=== PATIENT | male | born 1970 | race African-American/Black ===

== ENCOUNTER 2019-02-07 09:52 | Emergency (ER) | payer OTHER ==
[~2019-02-07] VITALS: Ht 177.8 cm; Wt 105.2 kg
[~2019-02-07 09:52] MED LIST: ANTIVERT/2525 MG PO; APAP/HYDROCODON1 T13 PO; APAP/HYDROCODON1 T15 PO; FLO4 PO; HYDRALAZINE HCL10 MG PO; LISINOPRIL/HCTZ PO; METOPROLOL TART25 M1 PO; MEV20 PO; MOTRIN800 MG PO; PRO10 PO; TOP50 PO
[2019-02-07 10:02] VITALS: Ht 177.8 cm; Wt 105.2 kg
[2019-02-07 12:08] VITALS: BP 168/82
== END 2019-02-07 12:08 | disposition home or self-care (01) ==
LOC: ED 09:52
DX: S60.041A Contusion of right ring finger without damage to nail, initial encounter (principal); S90.112A Contusion of left great toe without damage to nail, initial encounter; N18.6 End stage renal disease; Z99.2 Dependence on renal dialysis; W22.03XA Walked into furniture, initial encounter; Y93.89 Activity, other specified; Y92.89 Other specified places as the place of occurrence of the external cause; Y99.8 Other external cause status